=== PATIENT | male | born 1975 | race Two or more races ===

== ENCOUNTER 2023-05-18 09:04 | Outpatient (AMB) | payer OTHER, SELFPAY ==
--- NOTE | 2023-05-18 09:06 | MHC.OFFWIV ---
Intake Vital Signs 05/18/23 09:07 Height 5 ft 7 in Weight 190 lb BMI 29.8 BP 126/76 Blood Pressure Location Lt brachial Position Sitting Pulse 77 Pulse Source Pulse Oximeter Temp 97.8 F Temp Source Oral Pulse Oximetry (%) 98 Oxygen Delivery Method Room Air Intake Visit Reasons: ASSISTANT BUYER; Stiff neck left side (lobby) Intake Note: pt is here for c/o stiff neck on left side Patient Tobacco Use Status: Never used Tobacco Allergies No Known Allergies Allergy (Verified 05/18/23 09:07) Do you need a note to return to daycare/school/sports/work: Yes HPI HPI Comments History of Present Illness Details This is a 47-year-old male who presented to the walk-in clinic complaining of left-sided neck pain/stiffness x4 days. Patient states he has been lifting in the gym more often than usual but he otherwise denies any trauma to the left shoulder or neck. He denies any numbness/weakness/paresthesias into his left upper extremity. He denies any fevers or chills. PFSH Social History Patient Tobacco Use Status: Never used Tobacco Review of Systems Const All systems reviewed & are unremarkable except as noted in HPI and below Reports no additional complaints Eyes Reports no additional complaints ENT Reports no additional complaints Card Reports no additional complaints Resp Reports no additional complaints GI Reports no additional complaints Reports no additional complaints Musc Reports no additional complaints Skin/Breast Reports system reviewed and no additional complaints, except as documented Neuro Reports no additional complaints Psych Reports no additional complaints Endo Reports no additional complaints Nikko/Lymph Reports no additional complaints Aller/Immun Reports no additional complaints Physical Exam Vital Signs: Last Vital Signs Temp 97.8 F 05/18/23 09:07 Pulse 77 05/18/23 09:07 BP 126/76 05/18/23 09:07 Pulse Ox 98 05/18/23 09:07 Oxygen Delivery Method Room Air 05/18/23 09:07 BMI result Body Mass Index 29.8 Const Other: Vital signs reviewed. Constitutional: Non-toxic appearing. No acute distress. Well-developed and well-nourished. HEENT: Normocephalic and atraumatic. Skin: Warm and dry. No rashes or lesions noted. Neck: Slightly limited range of motion with lateral flexion and rotation to the left due to pain. Palpable muscle spasm on the left cervical paraspinal musculature and left trapezius. No cervical spinous process tenderness to palpation. Cardio: Regular rate and rhythm. No murmurs, gallops, or rubs. Pulmonary: No respiratory distress. No accessory muscle usage. Musculoskeletal: Normal range of motion in joints throughout the body. No deformity or other signs of injury. Neuro: Alert and oriented x4. Cranial nerves 2-12 grossly intact. No focal deficits appreciated. Psych: Normal mood and affect. Assessment & Plan Assessment & Plan (1) Cervical sprain: Code(s): S13.9XXA - Sprain of joints and ligaments of unspecified parts of neck, initial encounter Qualifiers: Encounter type: initial encounter Qualified Code(s): S13.9XXA - Sprain of joints and ligaments of unspecified parts of neck, initial encounter Plan: This is a 47-year-old male who presented to the walk-in clinic complaining of left-sided neck pain/stiffness without radicular symptoms. History and physical most consistent with a sprain/strain versus spasm of the left cervical paraspinal musculature in the left trapezius, no suspicion for nerve impingement given no radicular symptoms and no suspicion for meningitis given no meningismus or fevers. Recommended rest/activity modification, heat to the area, PO meloxicam 15 mg daily, and PO cyclobenzaprine 10 mg 3 times daily as needed for muscle spasms. Patient drives a tractor trailer for work so he was informed that the muscle relaxant can be slightly sedating so he should trial this at nighttime to see if it makes him drowsy. Patient was advised to follow-up here or proceed directly to the emergency room if he were to develop persistent/worsening symptoms or development of radicular symptoms. Patient verbalizes understanding and he is in agreement with the plan. Medications: New meloxicam 15 mg PO DAILY 30 tabs 0RF cyclobenzaprine 10 mg PO TID PRN 20 tabs 0RF muscle spasm Coding Level of Care Code New Pt Level 3 (25641) Diagnoses Neck sprain, initial encounter S13.9XXA Encounter type: initial encounter
[2023-05-18 09:07] VITALS: BP 126/76; PULSE 77; TEMP 36.6; O2SAT 98; BMI 29.8
== END 2023-05-18 10:48 | disposition home or self-care (01) ==
PROVIDERS: PCP Internal Medicine; Visit Provider Physician Assistant Medical
DX: S13.9XXA Sprain of joints and ligaments of unspecified parts of neck, initial encounter (principal)
CPT/HCPCS: 99203

== ENCOUNTER → 2024-02-11 11:35 | Outpatient (BNV) | payer OTHER, SELFPAY | PROVIDERS: PCP Internal Medicine; Visit Provider Radiology Diagnostic Radiology | DX: M54.2 Cervicalgia (principal); R51.9 Headache, unspecified; M54.50 Low back pain, unspecified; R42 Dizziness and giddiness; R11.2 Nausea with vomiting, unspecified | CPT/HCPCS: 70450; 71260; 72125; 74177 ==

== ENCOUNTER 2024-05-12 12:42 | Outpatient (AMB) | payer OTHER, SELFPAY ==
[2024-05-12 12:47] VITALS: BP 120/84; PULSE 57; O2SAT 98
--- NOTE | 2024-05-12 12:47 | AM.OFFWIN_ITS ---
Intake Vital Signs 05/12/24 12:47 Weight 197 lb BP 120/84 Blood Pressure Location Lt brachial Position Sitting Pulse 57 Pulse Source Pulse Oximeter Pulse Oximetry (%) 98 Oxygen Delivery Method Room Air Intake Visit Reasons: EP-lt elbow pain Intake Note: Patient here for left elbow pain that has been present for a couple of weeks. no known injuries. Patient Tobacco Use Status: Never used Tobacco Allergies No Known Allergies Allergy (Verified 05/12/24 12:54) Do you need a note to return to daycare/school/sports/work: No HPI HPI Comments History of Present Illness Details 48 y/o male patient who presents to the walk in clinic with c/o Left Elbow Pain for few weeks now. Reports that 2 months ago He had a Fall - he fell off his Truck, but denies Fracturing any Bones. 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 He has been using Ice/Heat, NSAIDs and Muscle relaxants with some relief. [facility] Medical History (Updated 05/12/24 @ 13:12 by Helen Flores NP) Left elbow pain Social History Patient Tobacco Use Status: Never used Tobacco Review of Systems Const All systems reviewed & are unremarkable except as noted in HPI and below Physical Exam Vital Signs: Last Vital Signs Pulse 57 05/12/24 12:47 BP 120/84 05/12/24 12:47 Pulse Ox 98 05/12/24 12:47 Oxygen Delivery Method Room Air 05/12/24 12:47 Const General: no acute distress Nutritional Appearance: overweight Orientation/consciousness: patient oriented x3 Neuro General: patient oriented x3, gait normal and moves all extremities Extrem Right upper extremity: normal to inspection Left upper extremity: normal to inspection, full ROM, normal capillary refill and elbow/forearm Details: tenderness Location: of the olecranon and normal ROM; no swelling, no ecchymosis and no crepitus Psych Speech and movement: Normal speech and movement present Assessment & Plan Assessment & Plan (1) Left elbow pain: Code(s): M25.522 - Pain in left elbow Plan: Ordered Muscle relaxants Declined Xray today Wrapped Elbow with David Bandage Ice/Heat NSAIDs for pain relief. Medications: New meloxicam 7.5 mg PO DAILY 20 tabs 0RF M25.522 - Pain in left elbow diclofenac sodium 1% (Voltaren Arthritis Pain) 2 grams topical BID 100 grams 0RF M25.522 - Pain in left elbow Changed From cyclobenzaprine 10 mg PO TID PRN 20 tabs 0RF muscle spasm M25.522 - Pain in left elbow To cyclobenzaprine 10 mg PO BEDTIME PRN 20 tabs 0RF muscle spasm M25.522 - Pain in left elbow Coding Level of Care Code Est Pt Level 4 (10892) Diagnoses Left elbow pain M25.522 Time Spent (min) 20
--- OUTSIDE RECORDS SUMMARY | 2024-05-12 14:59 | XMS_ITS | Clinical Summary ---
Author Organization [place] [address] [facility] Building Address [place] [address] Phone Care Team Providers Care Life Science Taxonomist Name Role Phone Carlos Ware MD Primary Care Provider [phone] Allergies No known active allergies Medications omeprazole (PriLOSEC) [address] capsule Take 1 Capsule by mouth daily. 11/01/2023 Active tadalafiL (CIALIS) 5 mg tablet Take 1 Tablet by mouth daily. 10/29/2023 Active diphenhydrAMINE -acetaminophen (TYLENOL PM) 25-500 mg per tablet Take 1 tablet by mouth 1 (one) time each day. Active tiZANidine (Zanaflex) 4 mg capsule Take 1 capsule (4 mg total) by mouth at bedtime for 10 days. 10 each 03/07/2024 Active Active Problems Problem Noted Date Diagnosed Date Syncopal episodes 01/26/2024 Erectile dysfunction 11/28/2021 Gastroesophageal reflux disease without esophagi tis 11/28/2021 Benign prostatic hyperplasia with lower urinary tract symptoms 11/23/2017 Obesity (BMI 30.0-34.9) 09/11/2011 Encounters Date Type Department Care Team Description 03/07/2024 3:36 PM EST - 03/07/2024 11:59 PM EST Hospital Encounter [facility] [address] [place] [address] Acute right-sided low back pain without sciatica Discharge Disposition: Home or Self Care 03/07/2024 3:30 PM EST - 03/07/2024 11:59 PM EST Hospital Encounter [address] [phone] Acute right-sided low back pain without sciatica Discharge Disposition: Home or Self Care 03/07/2024 3:00 PM EST Office Visit Adult Medicine [address] [phone] Gogo King PA Acute right-sided low back pain without sciatica (Primary Dx) 02/28/2024 Telephone Adult Medicine [address] [phone] Carlos Ware MD ER Follow up 02/26/2024 Telephone Adult Medicine [address] [phone] Belgica Louie RN from Last 3 Months Immunizations Name Administration Dates Next Due Influenza, Unspecified 11/09/2023 Moderna SARS-CoV-2 COVID-19, mRNA, LNP-S, preservative free 11/09/2023 Tdap Tetanus diptheria acell ular pertussis (Boostrix; Adacel) 7yo and older 06/14/2021,08/30/2010 Surgical History Surgery Date Site/Laterality Comments OTHER SURGICAL HISTORY PROCEDURE: DENIES PREVIOUS SURGERY Medical History Medical History Date Comments Syncopal episodes DX:Syncopal ep isodes Obesity (BMI 30-39.9) DX:Obesity (BMI 30-39.9) History of 2019 novel baldwin virus disease (COVID-19) 06/14/2021 DX:History of 2019 novel cor onavirus disease (COVID-19); COMMENT: Positive 05/01/2021 Family History Medical History Relation Name Comments Diabetes Aunt Mother side of the family including mother No Known Problems Daughter Arthritis Father Knee replacemen t No Known Problems Maternal Grandfather No Known Problems Maternal Grandmother Diabetes Mother No Known Problems Paternal Grandfather No Known Problems Paternal Grandmother No Known Problems Son Breast cancer Neg Hx Colon cancer Neg Hx Heart attack Neg Hx Prostate cancer Neg Hx Stroke Neg Hx Relation Name Status Comments Aunt Daughter Alive Father Alive Maternal Grandfather Maternal Grandmother Mother Alive Paternal Grandfather Paternal Grandmother Son Alive Social History Tobacco Use Types Packs/Day Years Used Date Smoking Tobacco: Former Cigarettes 0.5 20 0 02/06/1996 - 02/06/2016 Smokeless Tobacco: Never Tobacco Cessation:Counseling Given: Not Answered Alcohol Use Standard Drinks/Week Comments Yes 0 (1 standard drink = 0.6 oz pur e alcohol) Sex and Gender Information Value Date Recorded Sex Assigned at Not on file Legal Sex Male 5:43 PM EST Gender Identity Not on file Sexual Orientation Not on file Obstetrics History Last Filed Vital Signs Vital Sign Reading Time Taken Comments Blood Pressure 110/64 03/07/2024 3:14 PM EST Pulse 83 03/07/2024 3:14 PM EST Temperature 36.7 ??C (98 ??F) 03/07/2024 3:14 PM EST Respiratory Rate 16 03/07/2024 3:14 PM EST Oxygen Saturation - - Inhaled Oxygen Concentration - - Weight 84.4 kg (186 lb) 03/07/2024 3:14 PM EST Height 170.2 cm (5' 7 ) 03/07/2024 3:14 PM EST Body Mass Index 29.13 03/07/2024 3:14 PM EST Plan of Treatment Health Maintenance Due Date Last Done Comments Hepatitis B Vaccines (1 of 3 - 19+ 3-dose series) 11/03/1995 Colorectal Cancer Screening: Colonoscopy 01/07/2022 HIV Screening 01/07/2022 Hepatitis C Screening 01/07/2022 Social Influencers of Health Screening 01/07/2022 COVID-19 Vaccine ( season) 2024 11/09/2023, 01/15/2021, 06/20/2020, Additional history exists Depression Screening 10/31/2024 11/01/2023 Cholesterol Screening (Lipid Panel) 01/04/2028 01/03/2023 DTaP,Tdap,and Td Vaccines (3 - Td or Tdap) 06/15/2031 06/14/2021, 08/30/2010 Influenza Vaccine Completed 11/09/2023 HIB Vaccines Aged Out No longer eligi ble based on patient's age to complete this topic HPV Vaccines Aged Out No longer eligi ble based on patient's age to complete this topic Hepatitis A Vaccines Aged Out No long er eligible based on patient's age to complete this topic IPV Vaccines Aged Out No longer eligi ble based on patient's age to complete this topic MMR Vaccines Aged Out No longer eligi ble based on patient's age to complete this topic Meningococcal ACWY Vaccine Aged Out N o longer eligible based on patient's age to complete this topic Meningococcal B Vaccine Aged Out No l onger eligible based on patient's age to complete this topic Pneumococcal Vaccine: Pediatrics (0 to 5 Years) and At-Risk Patients (6 to 64 Years) Aged Out No longer eligible based on patient's age to complete this topic RSV Immunization Patients Under 20 months Aged Out No longer eligible based on patient's age to complete this topic Varicella Vaccines Aged Out No longer eligible based on patient's age to complete this topic Procedures Procedure Name Priority Date/Time Associated Diagnosis Comments XR LUMBAR SPINE 4+ VIEWS Routine 03/07/2024 3:49 PM EST Acute right-sided low back pain without sciatica XR HIP 2-3 VIEWS RIGHT Routine 03/07/2024 3:48 PM EST Acute right-sided low back pain without sciatica HM DEPRESSION SCREENING Routine 11/01/2023 LIPID PANEL Routine 01/03/2023 from Last 3 Months or Most Recently Relevant to Health Maintenance Results * XR Lumbar Spine 4+ Views (03/07/2024 3:49 PM EST) Anatomical Region Laterality Modality Spine, L-spine Radiographic Melia ging 03/07/2024 5:00 PM EST Impressions 03/07/2024 5:01 PM EST No acute fracture or dislocation of the lumbar spine. ??Degenerative changes as above. -------- FINAL REPORT -------- Dictated By: El Sepulveda Dictated Date: 03/07/2024 17:00 ET Assigned Physician: El Sepulveda Reviewed and Electronically Signed By: El Sepulveda Signed Date: 03/07/2024 17:01 ET Workstation ID: [id number] Transcribed By: Self Edit Transcribed Date: 03/07/2024 17:00 ET Narrative 03/07/2024 5:01 PM EST HISTORY: Low back pain, no red flags TECHNIQUE: 4 views of the lumbar spine COMPARISON: None FINDINGS: Vertebral body height is grossly maintained. ??Decreased disc height at L4-L5 and L5-S1 with endplate sclerosis. ??Moderate-sized anterior osteophytes are present at L2-L3 and L3-L4. ??No evidence of spondylolisthesis. ??Mild facet arthropathy is present along the lower thoracic spine. ??Minimal neuroforaminal stenosis at the lower lumbar spine. ??The sacroiliac joints are patent. ??Moderate stool throughout the colon. Procedure Note El Sepulveda MD - 03/07/2024 HISTORY: Low back pain, no red flags TECHNIQUE: 4 views of the lumbar spine COMPARISON: None FINDINGS: Vertebral body height is grossly maintained. Decreased disc height atL4-L5 and L5-S1 with endplate sclerosis. Moderate-sized anteriorosteophytes are present at L2-L3 and L3-L4. No evidence ofspondylolisthesis. Mild facet arthropathy is present along the lowerthoracic spine. Minimal neuroforaminal stenosis at the lower lumbarspine. The sacroiliac joints are patent. Moderate stool throughout thecolon. IMPRESSION: No acute fracture or dislocation of the lumbar spine. Degenerativechanges as above. -------- FINAL REPORT -------- Dictated By: El Sepulveda Dictated Date: 03/07/2024 17:00 ET Assigned Physician: El Sepulveda Reviewed and Electronically Signed By: El Sepulveda Signed Date: 03/07/2024 17:01 ET Workstation ID: [id number] Transcribed By: Self Edit Transcribed Date: 03/07/2024 17:00 ET us Gogo FONTANA IMG XR PROCEDURES Final Resul t * XR Hip 2-3 Views Right (03/07/2024 3:48 PM EST) Anatomical Region Laterality Modality Lower Extremities, Hip Right Radiograp hic Imaging 03/07/2024 5:01 PM EST Impressions 03/07/2024 5:02 PM EST No acute fracture or dislocation of the right hip. -------- FINAL REPORT -------- Dictated By: El Sepulveda Dictated Date: 03/07/2024 17:01 ET Assigned Physician: El Sepulveda Reviewed and Electronically Signed By: El Sepulveda Signed Date: 03/07/2024 17:02 ET Workstation ID: [id number] Transcribed By: Self Edit Transcribed Date: 03/07/2024 17:01 ET Narrative 03/07/2024 5:02 PM EST HISTORY: pain TECHNIQUE: Frontal and lateral radiographs of the right hip.An AP radiograph of the pelvis was obtained to assess joint symmetry. COMPARISON: None FINDINGS: No fracture or dislocation is seen. The hip joint is well-maintained with normal alignment. The femoral head is well-seated within the acetabulum. Procedure Note El Sepulveda MD - 03/07/2024 HISTORY: pain TECHNIQUE: Frontal and lateral radiographs of the right hip.An APradiograph of the pelvis was obtained to assess joint symmetry. COMPARISON: None FINDINGS: No fracture or dislocation is seen. The hip joint is well-maintained withnormal alignment. The femoral head is well-seated within the acetabulum. IMPRESSION: No acute fracture or dislocation of the right hip. -------- FINAL REPORT -------- Dictated By: El Sepulveda Dictated Date: 03/07/2024 17:01 ET Assigned Physician: El Sepulveda Reviewed and Electronically Signed By: El Sepulveda Signed Date: 03/07/2024 17:02 ET Workstation ID: [id number] Transcribed By: Self Edit Transcribed Date: 03/07/2024 17:01 ET Gogo F[facility]TA[facility] IMG XR PROCEDURES Final Resul t * Depression Screening (11/01/2023) Pathologist [facility] Depression Screening Abstracted Historical Provider HEALTH MAINTENANCE Final Result * (ABNORMAL) Lipid panel (01/03/2023) Pathologist [facility] LDL/HDL Ratio 4 0 - 4 Triglycerides 98 0 - 150 mg/dL Cholesterol 207(A) 0 - 200 mg/dL HDL 49 >=40 mg/dL LDL Cholesterol 139(A) 0 - 100 mg/dL Blood Venous blood specimen / Unknown us Historical Provider LAB BLOOD ORDERABLES Dannielle l Result from Last 3 Months or Most Recently Relevant to Health Maintenance Insurance [facility] [id number] [facility] DEPT OF LABOR Care Teams Life Science Taxonomist Relationship Specialty Start Date End Date Carlos Ware MD [address] [place] [id number] PCP - General 07/11/05
== END 2024-05-12 13:47 | disposition home or self-care (01) ==
PROVIDERS: PCP Internal Medicine; Visit Provider Nurse Practitioner Family
DX: M25.522 Pain in left elbow (principal)

== ENCOUNTER → 2024-05-12 12:42 | Outpatient (BNVA) | payer OTHER, SELFPAY | PROVIDERS: PCP Internal Medicine; Visit Provider Nurse Practitioner Family ==